=== PATIENT | male | born 1985 | race African-American/Black ===

== ENCOUNTER 2017-10-16 03:53 | Emergency (ER) | payer SELFPAY ==
[2017-10-16 04:54] LABS: APPEARANCE,URINE CLEAR; BILIRUBIN,URINE NEGATIVE (NEGATIVE); COLOR,URINE COLORLESS; GLUCOSE, URINE NEGATIVE (NEGATIVE); KETONES,URINE NEGATIVE (NEGATIVE); LEUKOCYTE ESTERASE,URINE NEGATIVE (NEGATIVE); NITRITE,URINE NEGATIVE (NEGATIVE); PROTEIN,URINE NEGATIVE (NEGATIVE); URINE SPECIFIC GRAVITY 1.001; UROBILINOGEN,URINE NEGATIVE mg/dL (<2.0)
[2017-10-16] MEDS ORDERED: LIDOCAINE 1% INJ-PF (10 MG/ML) 30 ML SDV INFIL ONE (07:16)
[2017-10-16] MEDS ORDERED: CEFTRIAXONE INJ 250 MG VIAL IM ONE (07:16)
[2017-10-16] MEDS ORDERED: METRONIDAZOLE 500 MG TABLET PO ONE (07:16)
[2017-10-16] MEDS ORDERED: AZITHROMYCIN 1 GM SUSP PACKET PO ONE (07:16)
--- NOTE | 2017-10-16 07:17 | ER Document Report ---
ED GI/ - General Chief Complaint: STD Exposure Stated Complaint: NOT FEELING GOOD Time Seen by Provider: 10/16/17 07:15 Notes: Patient is a 32-year-old male who presents with tingling when he urinates. His new partner said that she has trichomonas and instructed him to go get treated. The partners gonorrhea and chlamydia tests were negative and patient does not have any penile discharge, testicular pain or lesions. Past Medical History - General Information source: Patient - Social History Smoking Status: Unknown if Ever Smoked Chew tobacco use (# tins/day): No Frequency of alcohol use: Occasional Drug Abuse: None Family History: Reviewed & Not Pertinent Patient has suicidal ideation: No Patient has homicidal ideation: No Renal/ Medical History: Denies: Hx Peritoneal Dialysis Review of Systems - Review of Systems EENT: denies: Eye discharge, Blurred vision Genitourinary: Burning. denies: Dysuria, Discharge, Frequency, Hematuria, Pain Male Genitourinary: denies: Testicular pain, Penile discharge Musculoskeletal: denies: Joint swelling Skin: denies: Lesions, Rash Hematologic/Lymphatic: denies: Enlarged lymph nodes, Swollen glands Physical Exam - Vital signs Vitals: Temp Pulse Resp BP Pulse Ox 97.7 F 100 16 131/85 H 96 10/16/17 03:57 10/16/17 03:57 10/16/17 03:57 10/16/17 03:57 10/16/17 03:57 - Notes Notes: PHYSICAL EXAMINATION: GENERAL: Well-appearing, well-nourished and in no acute distress. HEAD: Atraumatic, normocephalic. EYES: Pupils equal round and reactive to light, extraocular movements intact, sclera anicteric, conjunctiva are normal. ENT: nares patent, oropharynx clear without exudates. Moist mucous membranes. NECK: Normal range of motion, supple without lymphadenopathy LUNGS: Breath sounds clear to auscultation bilaterally and equal. No wheezes rales or rhonchi. HEART: Regular rate and rhythm without murmurs ABDOMEN: Soft, nontender, normoactive bowel sounds. No guarding, no rebound. No masses appreciated. : No penile discharge. Non-tender testicles. No lesions. EXTREMITIES: Normal range of motion, no pitting or edema. No cyanosis. NEUROLOGICAL: Cranial nerves grossly intact. Normal speech, normal gait. Normal sensory and motor exams. PSYCH: Normal mood, normal affect. SKIN: Warm, Dry, normal turgor, no rashes or lesions noted. Course - Re-evaluation Re-evalutation: With patient's recent exposure to known trichomonas, will provide him with Flagyl and instructions not to drink alcohol. He does not want to be treated for gonorrhea chlamydia at this time because his partner tested negative. - Vital Signs Vital signs: Temp Pulse Resp BP Pulse Ox 97.7 F 100 16 131/85 H 96 10/16/17 03:57 10/16/17 03:57 10/16/17 03:57 10/16/17 03:57 10/16/17 03:57 Discharge - Discharge Clinical Impression: Urethritis Condition: Stable Disposition: HOME, SELF-CARE Additional Instructions: Take the full course of Flagyl and do not drink alcohol while on the Flagyl. Follow with the health department for further testing. Prescriptions: Metronidazole [Flagyl 500 mg Tablet] 500 mg PO BID #14 tablet Forms: Elevated Blood Pressure [facility] - Follow up as needed
[2017-10-16 07:48] VITALS: BP 127/84
[2017-10-16 10:58] LABS: CHLAM PCR NOT DETECTED (NOT DETECT); GON PCR NOT DETECTED (NOT DETECT)
== END 2017-10-16 07:42 | disposition home or self-care (01) ==
LOC: ER 03:53
DX: N34.2 Other urethritis (principal); R30.0 Dysuria; Z20.2 Contact with and (suspected) exposure to infections with a predominantly sexual mode of transmission
CPT/HCPCS: 81001; 87491; 87591; 99283

== ENCOUNTER 2018-12-11 23:34 | Emergency (ER) | payer SELFPAY ==
[2018-12-12] MEDS ORDERED: ACETAMINOPHEN 325 MG TABLET PO ONE (00:48)
[2018-12-12] MEDS ORDERED: LIDOCAINE 5% (700 MG) TRANSDERMAL ADH..PATCH TP ONE (00:48)
[2018-12-12] MEDS ORDERED: KETOROLAC TROMETHAMINE 60 MG/2 ML SDV IM ONE (00:48)
[2018-12-12] MEDS ORDERED: TRAMADOL HCL 50 MG TABLET PO ONE (00:49)
--- NOTE | 2018-12-12 00:51 | ER Document Report ---
ED General - General Chief Complaint: Shoulder Pain Stated Complaint: BILATERAL SHOULDER PAIN Time Seen by Provider: 12/12/18 00:20 Notes: Patient is a 33-year-old male without chronic medical problems who presents with pain to his left shoulder radiating down his left upper extremity. Patient reports that he has some mild discomfort to the right side but nothing like the left. States that his symptoms started after he began working out today including multiple push-ups, incline presses and pull-ups. States that his symptoms started today after another set of push-ups. Describes it as a throbbing, burning, shocking pain starting at the left trapezius and radiating down the entirety of the left upper extremity. Denies any history of similar symptoms in the past. Movement seems to worsen the pain. Has not tried anything to relieve his symptoms. Denies true weakness or loss of sensation. Denies chest pain or shortness of breath. No direct trauma to the area. Has not seen his primary doctor regarding today's concerns. TRAVEL OUTSIDE OF THE [place] IN LAST 30 DAYS: No Past Medical History - General Information source: Patient - Social History Smoking Status: Never Smoker Frequency of alcohol use: Occasional Drug Abuse: None Lives with: Spouse/Significant other Family History: Reviewed & Not Pertinent Patient has suicidal ideation: No Patient has homicidal ideation: No Renal/ Medical History: Denies: Hx Peritoneal Dialysis Review of Systems - Review of Systems Notes: Constitutional: Negative for fever. HENT: Negative for sore throat. Eyes: Negative for visual changes. Cardiovascular: Negative for chest pain. Respiratory: Negative for shortness of breath. Gastrointestinal: Negative for abdominal pain, vomiting or diarrhea. Genitourinary: Negative for dysuria. Musculoskeletal: Positive for left upper extremity pain and left neck pain Skin: Negative for rash. Neurological: Negative for headaches, weakness or numbness. 10 point ROS negative except as marked above and in HPI. Physical Exam - Vital signs Vitals: Temp Pulse BP 98.8 F 95 160/75 H 12/12/18 01:45 12/12/18 01:45 12/12/18 01:45 Interpretation: Hypertensive Notes: PHYSICAL EXAMINATION: GENERAL: Well-appearing, well-nourished and in no acute distress. HEAD: Atraumatic, normocephalic. EYES: Pupils equal round and reactive to light, extraocular movements intact, sclera anicteric, conjunctiva are normal. ENT: nares patent, oropharynx clear without exudates. Moist mucous membranes. NECK: Normal range of motion, supple without lymphadenopathy LUNGS: Breath sounds clear to auscultation bilaterally and equal. No wheezes rales or rhonchi. HEART: Regular rate and rhythm without murmurs ABDOMEN: Soft, nontender, normoactive bowel sounds. No guarding, no rebound. No masses appreciated. EXTREMITIES: Normal range of motion, although patient has pain with elevation of the left shoulder past 45 degrees in abduction. No swelling or deformity to the left shoulder, left neck or periscapular region. NEUROLOGICAL: Face symmetric. Tongue protrudes midline. Extraocular motions intact. Pupils are 2 mm and equally reactive. Normal speech, normal gait. 5 out of 5 strength in both the distal and proximal upper and lower extremities bilaterally. RMU motor and sensory distribution intact bilaterally. Sensation is grossly intact throughout. PSYCH: Normal mood, normal affect. SKIN: Warm, Dry, normal turgor, no rashes or lesions noted. Course - Re-evaluation Re-evalutation: 12/12/18 00:48 Patient presents with signs and symptoms most consistent with a cervical nerve root impingement likely at C6-7. Patient presents with acute onset of pain into the shoulder, neck, and radiation of pain into the left upper extremity. Patient also reports of some dullness over the forearm as well as into the hand itself. Patient reports symptoms did start after doing a significant number pull-ups and push-ups. On neurologic exam patient has 5 out of 5 biceps and triceps strength. RMU motor and sensory distribution including against resistance on motor testing is noted to be normal. 2+ radial pulse and capillary refill is less than 1 second in all digits. LPatient has had improvement of symptoms after receiving analgesia here in the emergency de partment. Advised supportive pillow for sleep at night, have treated with NSAIDs, tylenol and tramadol at night for pain that prevents sleep. At this time will discharge with return precautions and follow-up recommendations. Verbal discharge instructions given a the bedside and opportunity for questions given. Medication warnings reviewed. Patient is in agreement with this plan and has verbalized understanding of return precautions and the need for primary care follow-up in the next 24-72 hours. - Vital Signs Vital signs: Temp Pulse Resp BP Pulse Ox 98.8 F 95 160/75 H 12/12/18 01:45 12/12/18 01:45 12/12/18 01:45 Discharge - Discharge Clinical Impression: Neck pain, Cervical nerve root impingement Left shoulder pain Qualifiers: Chronicity: acute Qualified Code(s): M25.512 - Pain in left shoulder Condition: Good Disposition: HOME, SELF-CARE Additional Instructions: Your pain is related to impingement one of your cervical nerve roots and will take 6-8 weeks completely resolved. For your pain: Take ibuprofen 600 mg and acetaminophen 1000 mg every 6 hours together as needed for pain. If this does not control your pain you may take 50 mg of tramadol every 4 hours as needed. In addition to this, purchased the product that is sold [id number] cold Aspercreme with lidocaine. Apply to the affected area per bottle instructions. You should also apply heat to the area regularly using an electric heating plant pad. Return to the emergency department immediately if you develop weakness, loss of sensation, chest pain, shortness of breath, have worsening of your symptoms, or any other symptoms that are worrisome to you. Prescriptions: Tramadol HCl [Ultram 50 mg Tablet] 50 mg PO Q4HP PRN #12 tab PRN Reason: Forms: Return to Work
[2018-12-12 01:45] VITALS: BP 160/75
== END 2018-12-12 01:45 | disposition home or self-care (01) ==
LOC: ER 23:34
DX: G54.2 Cervical root disorders, not elsewhere classified (principal); M25.512 Pain in left shoulder; M25.511 Pain in right shoulder; M54.2 Cervicalgia
CPT/HCPCS: 99283; 96372; J1885

== ENCOUNTER 2020-03-27 12:46 | Emergency (ER) | payer SELFPAY ==
[2020-03-27 13:24] VITALS: BP 148/95
--- NOTE | 2020-03-27 13:28 | ER Document Report ---
HPI - HPI Time Seen by Provider: 03/27/20 13:20 Notes: 35-year-old male patient presents emergency department chief complaint of laceration to L index finger. Patient states he closed his finger in the care door. Limited ROM secondary to pain. Reports TDAP up to date. - ROS Systems Reviewed and Negative: Yes All other systems reviewed and negative - DERM Skin Problems: Laceration Past Medical History - General Information source: Patient - Social History Smoking Status: Never Smoker Frequency of alcohol use: None Drug Abuse: None Family History: Reviewed & Not Pertinent - Medical History Medical History: Negative Renal/ Medical History: Denies: Hx Peritoneal Dialysis Surgical Hx: Negative Vertical Provider Document - CONSTITUTIONAL Notes: PHYSICAL EXAMINATION: GENERAL: Well-appearing, well-nourished and in no acute distress. HEAD: Atraumatic, normocephalic. EYES: Pupils equal round extraocular movements intact, conjunctiva are normal. ENT: Nares patent NECK: Normal range of motion LUNGS: No respiratory distress Musculoskeletal: Limited range of motion to left index finger. 1 cm laceration noted on the pad at the tip of the finger. No obvious deformity. NEUROLOGICAL: Normal speech, normal gait. PSYCH: Normal mood, normal affect. SKIN: Warm, Dry, normal turgor, no rashes or lesions noted. - INFECTION CONTROL TRAVEL OUTSIDE OF THE [place] IN LAST 30 DAYS: No Course - Re-evaluation Re-evalutation: Finger X-Ray 03/27/20 13:27 IMPRESSION: No acute fracture. No fracture noted on x-ray. Wound cleaned. Closed with Dermabond. Patient tolerated well. Patient will be started on antibiotics for infection prevention. - Vital Signs Vital signs: Temp Pulse Resp BP Pulse Ox 115 H 16 148/95 H 98 03/27/20 13:24 03/27/20 13:24 03/27/20 13:24 03/27/20 13:24 Procedures - Laceration/Wound Repair left index finger Wound length (cm): 1 Wound's Depth, Shape: Superficial Laceration pre-procedure: Sterile PPE donned Wound explored: Clean Wound Debrided: Minimal Wound Repaired With: Dermabond Discharge - Discharge Clinical Impression: Laceration Condition: Stable Disposition: HOME, SELF-CARE Additional Instructions: Skin Adhesive Closure Skin adhesive (such as Dermabond) is a quick-drying glue that remains slightly flexible while it holds wound edges together. It can substitute for stitches on some cuts. The film will usually fall off the skin after 5 to 10 days. Keep the wound area clean and dry. Do not soak or scrub the wound. Don't swim. You can shower briefly after 24 hours. Gently blot the area dry with a soft towel. Don't apply ointments. If there is a dressing, change it immediately if it gets wet. Do not place tape directly over the adhesive film, because the tape may pull the film off your skin as you remove it. Don't bump the wound area. If there's risk of injury, keep the area well- padded. Avoid stretching of the skin. Do not scratch or pick at the adhesive film. Avoid prolonged exposure to sunlight or tanning lamps. Return if there is increasing pain, swelling, redness, or drainage, or if the wound edges seem to open or separate. Prescriptions: Cephalexin [Keflex] 500 mg PO BID #14 capsule Forms: Return to Work
--- NOTE | 2020-03-27 14:37 | RADIOLOGY REPORT (SQ) ---
EXAM DESCRIPTION: FINGER LEFT IMAGES COMPLETED DATE/TIME: 03/27/2020 1:50 pm REASON FOR STUDY: L index finger shut in car door COMPARISON: None. NUMBER OF VIEWS: Three views. TECHNIQUE: AP, lateral, and oblique images acquired of the left index finger LIMITATIONS: None. FINDINGS: MINERALIZATION: Normal. BONES: No acute fracture or dislocation. No worrisome bone lesions. SOFT TISSUES: No soft tissue swelling. No foreign body. OTHER: There is external bandage material about the index finger. IMPRESSION: No acute fracture. TECHNICAL DOCUMENTATION: JOB ID: [id number] 2010 [employer]- All Rights Reserved Reading location - IP/workstation name: [email or web address]
== END 2020-03-27 17:50 | disposition home or self-care (01) ==
LOC: ER 12:46
PROC: 0HQGXZZ Repair Left Hand Skin, External Approach (ICD-10-PCS; principal; 2020-03-27)
DX: S61.211A Laceration without foreign body of left index finger without damage to nail, initial encounter (principal); W23.0XXA Caught, crushed, jammed, or pinched between moving objects, initial encounter
CPT/HCPCS: 99283